=== PATIENT | male | born 1965 | race Caucasian/White ===

== ENCOUNTER 2024-03-10 03:29 | Emergency (ER) | payer OTHER ==
[~2024-03-10] VITALS: Ht 170.2 cm; Wt 59.0 kg
[2024-03-10 04:25] LABS: BASOPHILS # (AUTO) 0.1 K/UL (0.0-0.2); BASOPHILS % (AUTO) 0.5 % (0.0-2.0); EOSINOPHILS % (AUTO) 0.1 % (0.0-7.0); HEMATOCRIT 41.5 % (36.7-47.1); LYMPHOCYTES # (AUTO) 0.5 K/uL (0.8-4.8); LYMPHOCYTES % (AUTO) 3.5 % (20.5-51.5); MEAN CORPUSCULAR HEMOGLOBIN 28.7 uug (23.8-33.4); MEAN CORPUSCULAR HGB CONC 34 g/dL (32.5-36.3); MEAN CORPUSCULAR VOLUME 84.7 fL (73.0-96.2); MONOCYTES # (AUTO) 1.5 K/uL (0.1-1.30); MONOCYTES % (AUTO) 9.6 % (0.0-11.0); NEUTROPHILS # (AUTO) 13.5 K/uL (1.8-8.9); NEUTROPHILS % (AUTO) 86.3 % (38.5-71.5); PLATELET COUNT (AUTO) 228 K/uL (152-348); RED CELL DISTRIBUTION WIDTH 13.8 % (12.1-16.2); WHITE BLOOD COUNT (AUTO) 15.7 K/uL (3.6-10.2)
[2024-03-10 05:11] LABS: ALANINE AMINOTRANSFERASE 25 U/L (16-63); ALKALINE PHOSPHATASE 78 U/L (50-136); ASPARTATE AMINOTRANSFERASE 19 U/L (15-37); BILIRUBIN,DIRECT 0.2 mg/dL (0.0-0.2); BILIRUBIN,TOTAL 0.8 mg/dL (0.2-1.0); CALCIUM 8.8 mg/dL (8.5-10.1); CARBON DIOXIDE 25 mmol/L (21-32); CHLORIDE 100 mmol/L (98-107); CREATININE 1.6 mg/dL (0.6-1.3); GLUCOSE 239 mg/dL (74-106); NT-PRO BNP 30 pg/mL (0-125); POTASSIUM 3.8 mmol/L (3.5-5.1); SODIUM SERUM 136 mmol/L (136-145); TOTAL PROTEIN, SERUM 7.4 g/dL (6.4-8.2); UREA NITROGEN, BLOOD 20 mg/dL (7-18)
[2024-03-10] MEDS ORDERED: AMOX-430 PO (06:10)
[2024-03-10] MEDS ORDERED: D-ME473S47 PO (06:10)
[2024-03-10] MEDS ORDERED: AZIT250T13 PO (06:10)
[2024-03-10] MEDS ORDERED: CEFTRIAXONE /D5W 50ML IVPB **ER PYXIS IV ONE (06:14)
[2024-03-10] MEDS: CEFTRIAXONE 1 G in IV DEXTROSE 5% 50 ML IV ONE (06:15)
[2024-03-10] MEDS ORDERED: AZITHROMYCIN 500MG/ D5W 250ML IVPB **ER PYXIS ONLY IV ONE (06:34)
[2024-03-10] MEDS: AZITHROMYCIN IV 500 MG in IV DEXTROSE 5% 250 ML IV ONE (06:41)
[2024-03-10] MEDS ORDERED: HYDR-3980 PO (07:52)
[2024-03-10] MEDS ORDERED: HYDROCODONE/APAP 10-325 MG TABLET ONE (08:03)
[2024-03-10] MEDS: HYDROCODONE/APAP 10-325 MG TABLET PO ONE (08:03)
[2024-03-10 08:42] VITALS: BP 119/61; O2SAT 98
== END 2024-03-10 08:00 | disposition home or self-care (01) ==
LOC: ER 03:40
DX: J18.9 Pneumonia, unspecified organism (principal); R07.89 Other chest pain; R05.9 Cough, unspecified; R65.10 Systemic inflammatory response syndrome (SIRS) of non-infectious origin without acute organ dysfunction; R51.9 Headache, unspecified; R09.81 Nasal congestion; F17.210 Nicotine dependence, cigarettes, uncomplicated; Z20.822 Contact with and (suspected) exposure to COVID-19; Z79.899 Other long term (current) drug therapy; Z59.00 Homelessness unspecified
CPT/HCPCS: 36415; 71045; 83605; 84484; 85025; 85730; 87040; A4606; A4663; J0456; J0696